=== PATIENT | female | born 1990 | race Caucasian/White ===

== ENCOUNTER → 2020-01-17 | Outpatient (CLI) | payer OTHER | END | disposition home or self-care (01) | LOC: CFH 08:01 | PROVIDERS: ATTEND Family Medicine | DX: N20.0 Calculus of kidney (principal); R31.29 Other microscopic hematuria | CPT/HCPCS: 74176 ==

== ENCOUNTER → 2020-01-31 | Outpatient (CLI) | payer OTHER ==
[~2020-01-31] MED LIST: OMNIPAQUE 350 MG/ML, 100ML BOTTLE ONE
[2020-01-31 07:57] LABS: BASOPHILS # (AUTO) 0.01 x10^3/uL (0-0.1); BASOPHILS % (AUTO) 0 % (0-1); EOSINOPHILS # (AUTO) 0.27 x10^3/uL (0-0.4); EOSINOPHILS % (AUTO) 4 % (1-7); LYMPHOCYTES # (AUTO) 1.72 x10^3/uL (1-3.4); LYMPHOCYTES % (AUTO) 28 % (22-44); MD NO; MEAN CORPUSCULAR HEMOGLOBIN 30.6 pg (27.0-34.8); MEAN CORPUSCULAR HGB CONC 34.1 g/dL (32.4-35.8); MEAN CORPUSCULAR VOLUME 89.7 fL (80-100); MEAN PLATELET VOLUME 9.3 fL (7.4-10.4); MONOCYTES % (AUTO) 5 % (2-9); NEUTROPHILS # (AUTO) 3.84 x10^3/uL (1.8-6.8); NEUTROPHILS % (AUTO) 63 % (42-75); PLATELET COUNT 164 x10^3/uL (130-400); RED BLOOD COUNT 4.86 x10^6/uL (3.82-5.3); RED CELL DISTRIBUTION WIDTH 12.4 % (9.6-15.2)
[2020-01-31 07:58] LABS: HCT (SEDRATE) 43.4 % (34.6-47.8)
[2020-01-31 08:08] LABS: ALANINE AMINOTRANSFERASE 15 U/L (12-78); ALBUMIN 4.3 g/dL (3.4-5.0); ANION GAP 5 mmol/L (5-15); CALCIUM 9.8 mg/dL (8.5-10.1); CHLORIDE 109 mmol/L (98-107); CREATININE 0.82 mg/dL (0.55-1.02)
[2020-01-31 08:10] LABS: ALKALINE PHOSPHATASE 63 U/L (45-117); BILIRUBIN,TOTAL 0.7 mg/dL (0.2-1.0); TOTAL PROTEIN 7.5 g/dL (6.4-8.2)
== END | disposition home or self-care (01) ==
LOC: CFH 07:37
PROVIDERS: ATTEND Internal Medicine Gastroenterology
DX: N20.0 Calculus of kidney (principal)
CPT/HCPCS: 36415; 74177; 80053; 85025; 85651; 86140; Q9967

== ENCOUNTER 2020-02-29 13:29 | Day surgery (SDC) | payer OTHER ==
[~2020-02-29] VITALS: Ht 157.5 cm; Wt 57.2 kg
[~2020-02-29 13:29] MED LIST changes: +ACET-1600 PO; -OMNIPAQUE 350 MG/ML, 100ML BOTTLE ONE
[2020-02-29] MEDS ORDERED: LACTATED RINGERS 1,000 ML IV SCH (14:00)
[2020-02-29] MEDS ORDERED: LIDOCAINE-MPF 1%, 2ML INFIL ONE (14:00)
[2020-02-29] MEDS ORDERED: CHLORHEXIDINE 15 ML UDC MM ONE (14:00)
[2020-02-29 14:23] LABS: HCG UR SG 1.012 (1.003-1.030)
[2020-02-29] MEDS ORDERED: MIDAZOLAM 1 MG/ML, 2ML ONE (14:58)
[2020-02-29] MEDS ORDERED: FENTANYL PF 250 MCG/5ML ONE (14:58)
[2020-02-29] MEDS ORDERED: HYDROmorphone 1 MG/ML, 1ML INJ IVPush PRN (15:00)
[2020-02-29] MEDS ORDERED: MEPERIDINE/PF 25MG/0.5ML IVPush PRN (15:00)
[2020-02-29] MEDS ORDERED: OXYcodone 5 MG/5 ML ORAL.SOL UDC PO PRN (15:00)
[2020-02-29] MEDS ORDERED: LABETALOL 5MG/ML, 20ML IV PRN (15:00)
[2020-02-29] MEDS ORDERED: PROMETHAZINE 25 MG/ML, 1ML IVPush PRN (15:00)
[2020-02-29] MEDS ORDERED: ONDANSETRON 2MG/ML, 2ML IVPush PRN (15:00)
[2020-02-29] MEDS ORDERED: ACETAMINOPHEN 325 MG TABLET PO PRN (15:00)
[2020-02-29] MEDS ORDERED: FENTANYL PF 100 MCG/2ML IV PRN (15:00)
[2020-02-29] MEDS ORDERED: hydrALAzine 20 MG/ML, 1ML IV PRN (15:00)
[2020-02-29] MEDS ORDERED: CIPROFLOXACIN/PMX 400MG/200ML 200 ML IVPB ONE (17:34)
[2020-02-29] MEDS ORDERED: PROPOFOL 10 MG/ML, 20ML ONE (17:35)
[2020-02-29] MEDS ORDERED: DEXAMETHASONE 4 MG/ML, 1ML ONE ×2 (17:35)
[2020-02-29] MEDS ORDERED: ONDANSETRON 2MG/ML, 2ML ONE (17:35)
[2020-02-29] MEDS ORDERED: MEPERIDINE/PF 25MG/ML,1ML ONE (18:34)
[2020-02-29] MEDS ORDERED: FENTANYL PF 100 MCG/2ML ONE (18:41)
[2020-02-29] MEDS ORDERED: OXYcodone 5 MG/5 ML ORAL.SOL UDC ONE (18:41)
[2020-02-29] MEDS ORDERED: HYDR-3237 PO (20:14)
[2020-02-29 20:21] VITALS: BP 114/78
[2020-02-29 21:34] VITALS: BP 109/72
== END 2020-02-29 22:03 | disposition home or self-care (01) ==
LOC: OR 13:29 → 4NE 20:01 → OR 22:03
PROVIDERS: ATTEND Urology
DX: N20.0 Calculus of kidney (principal); Z20.828 Contact with and (suspected) exposure to other viral communicable diseases; Z79.899 Other long term (current) drug therapy; Z88.0 Allergy status to penicillin; Z88.8 Allergy status to other drugs, medicaments and biological substances
CPT/HCPCS: 36415; 52356; 81025; 87635; C1769; C2617; J0744; J1100; J2175; J2250; J2405; J2704; J3010; J7120; G0378